=== PATIENT | male | born 1945 | race American Indian/Alaskan Native ===

== ENCOUNTER 2018-03-25 10:38 | Outpatient (CLI) | payer MEDICARE | END 2018-03-25 10:39 | disposition home or self-care (01) | LOC: VAS 10:38 | PROVIDERS: ATTEND Internal Medicine Hematology & Oncology | DX: M79.605 Pain in left leg (principal); M19.90 Unspecified osteoarthritis, unspecified site; Z87.891 Personal history of nicotine dependence ==

== ENCOUNTER 2018-11-06 14:12 | Outpatient (CLI) | payer MEDICARE ==
--- NOTE | 2018-11-06 15:14 | XRay Report ---
XRAY CHEST TWO VIEWS: 11/06/18 14:12:00 CLINICAL: Cough.History of prostate cancer. COMPARISON: 11/22/17 FINDINGS: Normal heart and pulmonary vasculature. The lungs are normally expanded and clear. No airspace disease or pleural effusion. No pulmonary nodule or mass. A left Kzaaob-c-Cbga tip is in the distal SVC. Degenerative changes in the spine. No suspicious bone lesions. IMPRESSION: No acute cardiopulmonary process.No pneumonia. No evidence of metastatic disease.
--- NOTE | 2018-11-06 15:26 | XRay Report ---
X-RAY SOFT TISSUE NECK TWO VIEWS: 11/06/18 14:12:00 CLINICAL: Neck pain. FINDINGS: Status post posterior fusion of C1 and C2. Normal alignment through T2. Degenerative change with anterior osteophytes from C2-3 through C6-7. The largest osteophytes are at C2-3. Disc space narrowing at C3-4 and C4-5. Minimal facet joint disease. No fracture. The anterior osteophytes are large enough to possibly impair swallowing. Normal airway and soft tissues. IMPRESSION: Postsurgical changes with posterior fusion wires at C1-2. Extensive degenerative changes from C2-3 through C6-7. Large anterior osteophytes, particularly at C2-3 may impair swallowing.
== END 2018-11-06 14:13 | disposition home or self-care (01) ==
LOC: SPVIMAG 14:12
PROVIDERS: ATTEND Internal Medicine Hematology & Oncology
DX: M47.812 Spondylosis without myelopathy or radiculopathy, cervical region (principal); M48.02 Spinal stenosis, cervical region; M43.22 Fusion of spine, cervical region; M25.78 Osteophyte, vertebrae; R05 Cough; Z85.46 Personal history of malignant neoplasm of prostate
CPT/HCPCS: 70360; 71046

== ENCOUNTER 2019-03-20 14:21 | Outpatient (CLI) | payer MEDICARE ==
--- NOTE | 2019-03-20 15:02 | XRay Report ---
CHEST 2 VIEWS INDICATION: COUGH. COMPARISON: 11/06/2018 FINDINGS: Support devices: A left Xewfsi-h-Gtpp tip is in the right atrium at the cavoatrial junction and is un changed. Heart: Normal. Pulmonary vasculature: Normal. Lungs/pleura: The lungs are normally expanded and clear no pleural effusion. Additional findings: Degenerative change in the spine. IMPRESSION: 1. No acute findings. Signer Name: Mendez Ward MD Signed: 03/20/2019 2:58 PM Workstation Name: [id number]
== END 2019-03-20 14:22 | disposition home or self-care (01) ==
LOC: SPVIMAG 14:21
PROVIDERS: ATTEND Internal Medicine Hematology & Oncology
DX: C90.00 Multiple myeloma not having achieved remission (principal); D64.9 Anemia, unspecified; R05 Cough
CPT/HCPCS: 71046